=== PATIENT | female | born 1960 | race African-American/Black ===

== ENCOUNTER 2018-06-26 21:07 | Emergency (ER) | payer OTHER, MEDICAID ==
[~2018-06-26] VITALS: Ht 170.2 cm; Wt 73.0 kg
[2018-06-26] MEDS ORDERED: HYDROCODONE/ACETAMINOPHEN 5/325MG TABLET PO ONE (22:30)
[2018-06-26] MEDS ORDERED: IBUPROFEN 800MG TABLET PO ONE (22:30)
[2018-06-27 03:01] VITALS: BP 140/77
== END 2018-06-27 03:02 | disposition home or self-care (01) ==
LOC: ER 21:07
DX: S09.8XXA Other specified injuries of head, initial encounter (principal); M54.9 Dorsalgia, unspecified; M54.2 Cervicalgia; R03.0 Elevated blood-pressure reading, without diagnosis of hypertension; V03.90XA Pedestrian on foot injured in collision with car, pick-up truck or van, unspecified whether traffic or nontraffic accident, initial encounter; Y93.01 Activity, walking, marching and hiking; Y92.410 Unspecified street and highway as the place of occurrence of the external cause; I69.351 Hemiplegia and hemiparesis following cerebral infarction affecting right dominant side; I69.398 Other sequelae of cerebral infarction; G93.89 Other specified disorders of brain; F17.210 Nicotine dependence, cigarettes, uncomplicated
CPT/HCPCS: 70450; 71045; 72125; 99284; Z7610